=== PATIENT | female | born 1950 | race Caucasian/White ===

== ENCOUNTER 2017-01-20 15:05 | Emergency (ER) | payer MEDICARE, MEDICAID ==
[~2017-01-20] VITALS: Ht 162.6 cm; Wt 52.2 kg
[2017-01-20 15:30] LABS: BASOPHILS # (AUTO) 0.1 K/uL (0.0-8.0); EOSINOPHILS # (AUTO) 0.1 K/uL (0.0-0.7); EOSINOPHILS % (AUTO) 1.3 % (0.0-7.0); HEMATOCRIT 45.8 % (37-47); HEMOGLOBIN 15.4 G/DL (12.0-16.0); LYMPHOCYTES # (AUTO) 2.9 K/UL (0.8-4.8); LYMPHOCYTES % (AUTO) 40.7 % (20.5-51.5); MEAN CORPUSCULAR HEMOGLOBIN 33.2 UUG (27.0-31.0); MEAN CORPUSCULAR HGB CONC 34 g/dL (32.0-37.0); MEAN CORPUSCULAR VOLUME 98.5 FL (81.0-99.0); MONOCYTES # (AUTO) 0.4 K/UL (0.1-1.30); MONOCYTES % (AUTO) 5.9 % (0.0-11.0); NEUTROPHILS # (AUTO) 3.7 K/UL (1.8-8.9); NEUTROPHILS % (AUTO) 51.1 % (38.5-71.5); PLATELET COUNT (AUTO) 312 K/UL (150-450); RED BLOOD CELL COUNT(AUTO) 4.65 MIL/UL (4.2-5.4); WHITE BLOOD COUNT (AUTO) 7.2 K/UL (4.0-11.2)
--- NOTE | 2017-01-20 15:39 | NUR ---
Lemon water & 3 crackers provided to patient. Patient ate the snacks with good appetite.
[2017-01-20 15:41] LABS: CARBON DIOXIDE 23 mmol/L (21-32); CHLORIDE 104 mmol/L (98-107); CREATININE 0.9 mg/dL (0.6-1.3); GLUCOSE 77 mg/dL (74-106); POTASSIUM 4.1 mmol/L (3.5-5.1); UREA NITROGEN, BLOOD 18 mg/dL (7-18)
--- NOTE | 2017-01-20 15:44 | NUR ---
carly, high school social science teacher at bedside.
[2017-01-20 15:47] LABS: ALANINE AMINOTRANSFERASE 34 U/L (14-59); ALKALINE PHOSPHATASE 70 U/L (50-136); ASPARTATE AMINOTRANSFERASE 38 U/L (15-37); BILIRUBIN,DIRECT 0.1 mg/dL (0.0-0.2); BILIRUBIN,TOTAL 0.5 mg/dL (0.2-1.0)
[2017-01-20 15:50] LABS: ACETAMINOPHEN < 2.0 ug/mL (10-30)
[2017-01-20 16:01] LABS: ETHANOL 319 MG/DL (0-0)
--- NOTE | 2017-01-20 16:18 | NUR ---
Patient discharged to home in stable conditon. Written and verbal after care instructions given. Patient verbalizes understanding of instructions.pt walks in steady gait. axox4.
[2017-01-20 16:20] VITALS: BP 121/89
--- NOTE | 2017-01-20 16:24 | NUR ---
ADEBAYO called by JESSENIA Connor for a SS consult. ADEBAYO arrived to ED and met with JESSENIA Connor, consulted about the case. ADEBAYO then met with patient. Patient was seated in the ED room she was assigned, and expressed willingness to meet with ADEBAYO. Patient is a 66 year old female who was brought in to the ED today by paramedics after she was found intoxicated. Patient reported that her and her of 41 years had been renting a house in [place], and that the hose operator kept on raising the rent. Patient stated that they were having a hard time paying their rent, and in November 2016 were given a 30 day eviction notice. Patient stated that at the end of November, her friend who lives in [place] sent her a plane ticket and asked her to come stay with her, which patient stated she did. Patient stated that after staying in [place] for about 5 weeks, she returned to [place] a couple of days ago and has been staying in a motel. Patient stated that she receives $600/month from social security. Patient reported a history of alcohol use, stating "I have been drinking a quart of vodka daily for years". Patient reported being in a detox program a couple of years ago, followed by going to a residential program for a few weeks. Patient stated that after she left the residential program, she was able to remain sober for 2 months. Patient presented with labile and tearful affect, maintained eye contact. Patient was cooperative during her meeting with the executive secretary social welfare, but her thought process was somewhat loose in association. Patient was oriented to self, place, date, however denied being intoxicated. Patient was also unsure of how she arrived to the ED. ADEBAYO asked patient if there were any family or friends she wanted to contact, and patient stated that both her and her daughter have blocked her number and do not want to talk to her. SW assisted patient in exploring what resources she may need, and patient stated that for the time being she will be staying in a motel. Patient however agreed to receive resources for food francis, places for showers and hot meals, shelters, homeless programs, and information on how to obtain a bus pass. As ADEBAYO was working on gathering these resources, patient walked up to the nurses station and asked if she could leave. At this time, Dr. Mcdonnell and ADEBAYO approached patient and discussed her request. Patient once again expressed the desire to leave, and refused the resources that she had previously agreed on. Patient was discharged and she left the ED on foot.
== END 2017-01-20 16:21 | disposition home or self-care (01) ==
LOC: ER 15:05
DX: F10.129 Alcohol abuse with intoxication, unspecified (principal); Z59.0 Homelessness
CPT/HCPCS: 36415; 85025; A4663; G0480; G0480-TC